=== PATIENT | female | born 1975 | race Caucasian/White ===

== ENCOUNTER → 2016-10-31 | Outpatient (CLI) | payer BC ==
--- NOTE | 2016-10-31 16:24 | DX ---
Right Foot - 3 views Indication: Trauma. Pain. Technique: AP, oblique, and lateral views. Comparison: None Findings: Moderate dorsal forefoot soft tissue swelling. No acute fracture or dislocation. 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 Impression: No acute fracture. Soft tissue injury.
== END ==
LOC: BMCIMAGING 15:10
PROVIDERS: ATTEND Family Medicine
DX: M79.671 Pain in right foot (principal)

== ENCOUNTER → 2017-01-08 | Outpatient (CLI) | payer BC | LOC: FIMAGING 12:15 | DX: Z12.31 Encounter for screening mammogram for malignant neoplasm of breast (principal) | CPT/HCPCS: G0202 ==